=== PATIENT | female | born 1950 | race Caucasian/White ===

== ENCOUNTER 2016-05-23 20:38 | Emergency (ER) | payer OTHER ==
[~2016-05-23] VITALS: Ht 160 cm; Wt 111.1 kg
[~2016-05-23 20:38] MED LIST: BACTRIM,SEPT1 TABLET PO; BENADRYL25 MG PO; ESCITALOPRAM OX10 MG PO; JANUVIA25 MG PO; OMEPRAZOLE20 MG PO; PEPCID40 MG PO; PREDNISONE20 MG PO; PYRIDIUM100 MG PO
[2016-05-23] MEDS ORDERED: PERCOCET 5/31 TABLET PO (22:54)
[2016-05-23 23:13] VITALS: BP 142/64
== END 2016-05-23 23:31 | disposition home or self-care (01) ==
LOC: EME 20:38
DX: S82.832A Other fracture of upper and lower end of left fibula, initial encounter for closed fracture (principal); W18.30XA Fall on same level, unspecified, initial encounter; E11.9 Type 2 diabetes mellitus without complications
CPT/HCPCS: 73564; 73610; 99281; 99284

== ENCOUNTER 2016-11-18 12:45 | Emergency (ER) | payer OTHER ==
[~2016-11-18] VITALS: Ht 157.5 cm; Wt 107.5 kg
[~2016-11-18 12:45] MED LIST changes: +PERCOCET 5/31 TABLET PO
[2016-11-18] MEDS ORDERED: NAPROSYN500 MG PO (14:16)
[2016-11-18 15:05] VITALS: BP 131/72
== END 2016-11-18 15:06 | disposition home or self-care (01) ==
LOC: EME 12:45
DX: S46.012A Strain of muscle(s) and tendon(s) of the rotator cuff of left shoulder, initial encounter (principal); W07.XXXA Fall from chair, initial encounter; E11.9 Type 2 diabetes mellitus without complications; Z79.84 Long term (current) use of oral hypoglycemic drugs
CPT/HCPCS: 73030; 99281; 99284